=== PATIENT | female | born 1950 | race Hispanic/Latino ===

== ENCOUNTER 2025-10-02 06:47 | Observation (INO) | payer OTHER, MEDICAID ==
[2025-09-30 10:35] LABS: IMMATURE GRANULOCYTE ABSOLUTE 0.01 K/uL (0-1); NUCLEATED RED BLOOD CELLS 0.0 % (0.0-0.19); PLATELET COUNT (AUTO) 239 K/uL (130-400); RED BLOOD CELL COUNT(AUTO) 4.31 MIL/uL (4.00-5.50); RED CELL DISTRIBUTION WIDTH 13.2 % (11.0-15.5); WHITE BLOOD COUNT (AUTO) 6.0 K/uL (4.8-10.8)
--- NOTE | 2025-09-30 10:36 | EKG ---
[facility] Test Date: 2025-09-30 Test Time: 11:21:04 Pat Name: SHANNAN CAMPBELL Department: [facility] Patient ID: [id number] Room: [facility] Gender: F Corporate Affairs Manager: [id number] : 1950 Requested By: ARMINDA DURON Order Number: [id number] Reading MD: Marcus James Measurements Intervals [place] Rate: 71 P: 21 UT: 148 QRS: -12 QRSD: 81 T: 5 QT: 397 QTc: 431 Interpretive Statements Sinus rhythm No previous ECG available for comparison Electronically Signed On 10-02-2025 11:49:26 BEESWAX BLEACHER by Marcus James Please click the below link to view image of tracing.
[2025-09-30 10:42] VITALS: BP 175/90; PULSE 78; RESP 18; TEMP 97.7
[2025-09-30 10:46] LABS: INR 0.97 (0.85-1.15)
[2025-09-30 10:52] LABS: CREATININE 0.8 mg/dL (0.5-1.0); GLOMERULAR FILTR. RATE CALC 78.0 mL/min (>90); GLUCOSE,RANDOM 69.0 mg/dL (70-105); SODIUM SERUM 135.0 mmol/L (136-145); UREA NITROGEN, BLOOD 16.0 mg/dL (7-18)
[~2025-10-02] VITALS: Ht 160 cm; Wt 73.5 kg
[2025-10-02] VITALS (27 sets, daily range): BP systolic 108–160; BP diastolic 55–90; PULSE 65–91; RESP 16–20; TEMP 97.3–98.3; O2SAT 95–98
[2025-10-02] MEDS: LACTATED RINGERS 1000ML 1,000 ML IV SCH (01:00)
[~2025-10-02 06:47] MED LIST: FAMO40TA7 PO; METO-408 PO
[2025-10-02] MEDS: LACTATED RINGERS 1000ML 1,000 ML IV ONE (07:29)
[2025-10-02] MEDS ORDERED: PROMETHAZINE HCL 25 MG/ML 1ML AMPULE IM PRN (08:00)
[2025-10-02] MEDS ORDERED: MIDAZOLAM HCL 1 MG/ML 2ML VIAL ONE (12:32)
[2025-10-02] MEDS ORDERED: LIDOCAINE PF 100MG/5ML (2%) SYRINGE 5ML ONE (12:32)
[2025-10-02] MEDS ORDERED: SUCCINYLCHOLINE CHLORIDE 20 MG/ML 10 ML VIAL ONE (12:47)
[2025-10-02] MEDS ORDERED: GLYCOPYRROLATE 0.2 MG/ML 5 ML VIAL ONE ×2 (13:10→14:26)
[2025-10-02] MEDS ORDERED: NEOSTIGMINE METHYLSULFATE 1MG/ML IV ONE (13:10)
[2025-10-02] MEDS ORDERED: PROCHLORPERAZINE 10MG/2ML INJ IV PRN (15:00)
--- NOTE | 2025-10-02 15:04 | OP ---
Operative Note: DATE OF PROCEDURE: 10/02/25 SURGEON: ARMINDA DURON MD PRODUCTION FINISHER: [Please review operative record] ANESTHESIA: [General local] ANESTHESIOLOGIST/CENTREX RADIO OPERATOR: [[facility] anesthesia] PREOPERATIVE DIAGNOSIS: [Diaphragmatic hernia] POSTOPERATIVE DIAGNOSIS: [Paraesophageal hernia measuring 4 cm containing incarcerated cardia and fundus.] SYNOPSIS: [EGD post paraesophageal hernia repair showing no air leak, no obstruction, successful reduction of paraesophageal hernia, intact wrap.] PROCEDURE: [1. Robotic assisted laparoscopic paraesophageal hernia repair with mesh reinforcement. 2. Partial anterior fundoplication. 3. Intraoperative EGD] ESTIMATED BLOOD LOSS: [20 cc] INDICATIONS: [Patient is a 75-year-old female with chronic heartburn and epigastric pain. Found to have a large hernia on EGD and upper GI. Patient failed conservative management with dietary changes and medical therapy. Recommendation was given for diaphragmatic hernia repair with mesh and fundoplication. Risks, benefits, alternatives were discussed with the patient. Questions were answered. Patient agreed to proceed with surgical procedure.] DESCRIPTION OF PROCEDURE: [After appropriate consent was obtained, the patient was transferred to the operating room and placed supine position on the operating table. SCDs were placed, preop antibiotics were given. Patient underwent induction of general anesthesia, endotracheal intubation. Patient was then prepped and draped in usual sterile fashion. Time-out was performed. Through a left subcostal incision, Veress needle was inserted into the peritoneal cavity. Insufflation was allowed to 12 mmHg. Through a supraumbilical incision,8 mm trocar and laparoscope were inserted into the peritoneal cavity using [email or web address]. Veress needle and this vicinity were examined with no signs of injury. Rest of my trocars were placed under direct v isualization. Patient was positioned in the reverse Trendelenburg at 20. Through a5 mm epigastric incision, Rock liver retractor was placed in order to retract the left lobe of the liver anteriorly. The Tom robot was docked. Intraluminal pressure was lowered to 10 mmHg. Upon evaluation of the diaphragmatic hiatus, there was a4 cm paraesophageal defect containing incarcerated cardia and body. This confirmed the diagnosis of paraesophageal hernia hernia. Our dissection began by incising the hepat ogastric ligament in a avascular plane. This was followed cephalad towards the diaphragm using vessel sealer. The hiatal orifice was dissected circumferentially using the vessel sealer. The right mendoza was identified and a plane was developed between the right mendoza in the right esophageal wall. This dissection was accomplished with a combination of vessel sealer and blunt dissec tion. On the posterior aspect of the esophageal wall, the left mendoza was identified and this dissection was followed towards the left mendoza. A few short gastrics were divided in order to liberate the fundus. Once the esophagus was fully mobilized, we focused in the intra mediastinal dissection. Again this was accomplished mostly with blunt dissection very little vessel sealer dissection. Once there was 2 cm of intra-abdominal esophagus, we then passed the endoscope through the mouth into the esophagus and into the stomach with the endoscope in place we then proceeded to perform a cruroplasty. This was achieved by approximating the left and right crura on the posterior aspect of the esophagus using two 0 V lock nonabsorbable suture in a running fashion. At the end of the crural plasty, only one instrument was able to pass through the diaphragmatic hiatus. A8 cm Phasix round mesh with a horseshoe configuration was then used to reinforce the repair, this mesh was sutured in place to the diaphragm using 3-0 V lock absorbable suture in a running fashion in a couple of interrupted 0 to 2-0 silk sutures throws. In order to prevent dysphagia, a anterior partial fundoplication (RAIN) was performed. The fundus was grasped from left and transferred to the right anterior to the esophagus. The fundus was then in suture to the right mendoza with a 2-0 V lock nonabsorbable suture. With this ru nning suture, the rest of the fundus was pexy to the diaphragm. Endoscopy with insufflation revealed no air leak, no stenosis through the GE junction, appropriate reduction of the paraesophageal hernia, intact wrap. At this time we completed our repair. The Tom robot was undocked. Final inspection revealed adequate hemostasis, no concerns for leakage. Counts were correct at the end of the case. The abdomen was allowed to desufflate. The skin incisions were closed with 4-0 Monocryl. Dermabond was applied over the incisions. Patient tolerated the procedure well. Patient transferred to recovery in a good condition.] ARMINDA DURON MD Oct 02, 2025 15:04
--- NOTE | 2025-10-02 18:20 | NUR ---
received status post op hiatal hernia repair abd x 6 surg insc. dry clean intact verbally responsive denies pain call barrios with in reach
[2025-10-02] MEDS: FAMOTIDINE 20MG VIAL IV SCH (20:32)
[2025-10-02] MEDS: ENOXAPARIN SODIUM 30 MG/0.3 ML SQ SCH (20:33)
[2025-10-03 03:56] VITALS: BP 152/83; PULSE 76; RESP 18; TEMP 97.9
[2025-10-03] MEDS: HYDROcod/acetaMINOPHEN 7.5/325 MG 15 ML UDCUP PO PRN (06:31)
[2025-10-03 08:00] VITALS: BP 152/74; PULSE 66; RESP 18; TEMP 97.8
[2025-10-03] MEDS ORDERED: PoTASSium chl 10% ELIXIR 20MEQ 20 MEQ/15 ML UDCUP PO PRN (09:00)
[2025-10-03] MEDS: PoTASSium chloRIDE 20MEQ ER 20 MEQ ERTAB PO PRN (09:10)
--- NOTE | 2025-10-03 09:34 | DS ---
Discharge Summary HOSPITAL COURSE SUMMARY: This is a 75-year-old female with past medical history of diaphragmatic hernia who underwent robotic assisted laparoscopic paraesophageal hernia repair with mesh reinforcement. Fundoplication was done. Patient seen today postop in no acute distress and tolerating liquid diet. Abdominal incisions are clean, dry and intact. LABOR/EXCAVATOR(S): None PROCEDURES: POSTOPERATIVE DIAGNOSIS: [Paraesophageal hernia measuring 4 cm containing incarcerated cardia and fundus.] SYNOPSIS: [EGD post paraesophageal hernia repair showing no air leak, no obstruction, successful reduction of paraesophageal hernia, intact wrap.] PROCEDURE: [1. Robotic assisted laparoscopic paraesophageal hernia repair with mesh reinforcement. 2. Partial anterior fundoplication. 3. Intraoperative EGD] PROBLEM(S): Diaphragmatic hernia DISCHARGE INSTRUCTIONS: Follow post op diet Home Meds Reported Medications Famotidine (Famotidine) 40 Mg Tablet, 40 MG PO DAILY, TAB 09/30/25 Metoprolol Succinate (Metoprolol Succinate) 25 Mg Tab.er.24h, 25 MG PO BID, TAB 09/30/25 SHERIE MORALEZ NATURAL SCIENCE CURATOR Oct 03, 2025 09:34
[2025-10-03 10:58] VITALS: O2SAT 98
[2025-10-03 12:00] VITALS: BP 140/79; PULSE 72; RESP 18; TEMP 98
--- NOTE | 2025-10-03 13:20 | NUR ---
D/C INSTRUCTIONS GIVEN. AND ACKNOWLEDGED; SON AT BEDSIDE. IV'S REMOVED AND ABD BINDER PROVIDED
--- NOTE | 2025-10-03 13:49 | NUR ---
DCP:HOME Pt currently lives at home with her and son. Pt denies having any DME or home health services. Pt states that she has a provider that works with her for 2 hrs a day to assist with all ADLs, home management, and meals. PCP is Dr. Vianney Montilla and uses [facility] for any RX needs. At DC pt will want to go home and family can assist with transportation.
== END 2025-10-03 13:45 | disposition home or self-care (01) ==
LOC: DAH 06:47 → DAHIP 06:48 → 4AH 18:20
PROVIDERS: ADMIT Surgery; ATTEND Surgery
DX: K44.9 Diaphragmatic hernia without obstruction or gangrene (principal); I10 Essential (primary) hypertension; E78.00 Pure hypercholesterolemia, unspecified; M19.90 Unspecified osteoarthritis, unspecified site; D50.9 Iron deficiency anemia, unspecified; K25.9 Gastric ulcer, unspecified as acute or chronic, without hemorrhage or perforation; I25.10 Atherosclerotic heart disease of native coronary artery without angina pectoris
CPT/HCPCS: 80048; 85025; 85610; 85730; 86850; 86900; 86901; 36415; 93005; 43282; 96372 ×2; 96374; 97161; 97116 ×2; 97530 ×3; 96375; A6260; G0378 ×23; A4223 ×2; A4600; A4663; A4215 ×2; J7120 ×2; J1308 ×3; J3010; J1171; J1100; J0330; J0665 ×2; J3490 ×4; J2003; J1650 ×2; J2250; J2704; J2405 ×2; J2710; J0690 ×2; A4649; C1781; A4930; A4213; A4222; A4221; A4216; J2270; J0360; 43235